=== PATIENT | female | born 1960 | race Caucasian/White ===

== ENCOUNTER → 2016-06-02 | Outpatient (CLI) | payer BC ==
--- NOTE | 2016-06-04 07:59 | MM ---
Reason for exam: screening (asymptomatic). Last mammogram was performed 5 years and 2 months ago. History: Excisional biopsy of the left breast. Took hormonal contraceptives for 7 months. Physical Findings: A clinical breast exam by your physician is recommended on an annual basis and results should be correlated with mammographic findings. MG 3D Screening Mammo W/Cad Bilateral CC and MLO view(s) were taken. Prior study comparison: April 14, 2011, bilateral digital screening mammo w/CAD. The breast tissue is heterogeneously dense. This may lower the sensitivity of mammography. No significant changes when compared with prior studies. ASSESSMENT: Negative, BI-RAD 1 RECOMMENDATION: Routine screening mammogram of both breasts in 1 year.
== END | disposition home or self-care (01) ==
LOC: RADMAMWWP 16:14
PROVIDERS: ATTEND Family Medicine
DX: Z12.31 Encounter for screening mammogram for malignant neoplasm of breast (principal)
CPT/HCPCS: 77063; G0202

== ENCOUNTER 2018-05-29 00:22 | Observation (INO) | payer BC ==
[2018-05-29] MEDS ORDERED: HYDROmorphone 1 MG/ML 1 ML SYRINGE IVP STA (01:17)
[2018-05-29] MEDS ORDERED: ONDANSETRON 4 MG/2 ML VIAL IVP STA ×2 (01:17→02:39)
--- NOTE | 2018-05-29 01:40 | XR ---
EXAMINATION TYPE: XR ankle limited LT DATE OF EXAM: 05/29/2018 COMPARISON: NONE HISTORY: Pain TECHNIQUE: 2 views FINDINGS: There is trimalleolar fracture of the left ankle. There is a posterior dislocation of the t alus. There is a large posterior malleolus chip fracture. The talus appears intact. Subtalar joint ap pears intact. IMPRESSION: Posterior fracture dislocation of the left ankle with trimalleolar fracture.
[2018-05-29] MEDS: ETOMIDATE 2 MG/ML 10 ML VIAL IV STA ×2 (02:23→02:29)
[2018-05-29 02:47] LABS: Glucose,Whole Blood 157 mg/dL (75-99)
--- NOTE | 2018-05-29 02:56 | XR ---
EXAMINATION TYPE: XR ankle complete LT DATE OF EXAM: 05/29/2018 COMPARISON: Today HISTORY: Post reduction TECHNIQUE: 3 views. FINDINGS: There is anatomic reduction of the dislocated ankle joint. Detail is limited by cast. There is trima lleolar fracture of the ankle with fragment separation up to 8 mm involving the distal fibula. There is less severe displacement of the posterior malleolus and medial malleolus fracture fragments. There is possible osteochondral defect in the medial dome of the talus. IMPRESSION: Satisfactory reduction. Possible osteochondritis dissecans in the dome of the talus.
--- NOTE | 2018-05-29 03:08 | ED ---
Lower Extremity Injury HPI - General Source: patient Mode of arrival: wheelchair Limitations: physical limitation <Maliha Bella - Last Filed: 05/29/18 05:28> <Bandar Flores - Last Filed: 05/30/18 08:19> - General Chief Complaint: Extremity Injury, Lower Stated Complaint: ankle injury Time Seen by Provider: 05/29/18 01:14 - History of Present Illness Initial Comments: 58-year-old female patient presents to the emergency department today for evaluation of left ankle injury. Patient states that just prior to arrival she was stepping over a board when she tripped and fell injuring the ankle. Patient was unable to bear weight or ambulate. Did notice obvious deformity and sudden severe pain. Patient denies any numbness or tingling to the foot. She denies hitting her head or losing consciousness during the fall. She denies any neck or back pain. Denies any other injuries. Denies history of injury to the ankle. Patient denies any headache, chest pain, shortness of breath, dizziness, weakness, abdominal pain, nausea, vomiting, or difficulties with bowel movements or urination. (Maliha Bella) - Related Data Home Medications Medication Instructions Recorded Confirmed Cholecalciferol [Vitamin D3] 1,000 mg PO DAILY 05/29/18 05/29/18 Cyanocobalamin [Vitamin B-12] 500 mcg PO DAILY 05/29/18 05/29/18 Lisinopril [Zestril] 20 mg PO DAILY 05/29/18 05/29/18 Magnesium 200 mg PO DAILY 05/29/18 05/29/18 Methimazole 10 mg PO DAILY 05/29/18 05/29/18 PARoxetine HCL [Paxil] 10 mg PO DAILY 05/29/18 05/29/18 Previous Rx's Medication Instructions Recorded HYDROcodone/APAP 5-325MG [[place] 1 - 2 tab PO Q6HR PRN #42 tab 05/29/18 5-325] Hydrocodone/Acetaminophen [[place] 1 tab PO Q4H PRN #18 tab 05/29/18 5-325] Ondansetron HCl [Zofran] 4 mg PO Q8HR #20 tablet 05/29/18 Allergies Allergy/AdvReac Type Severity Reaction Status Date / Time peanut Allergy Unknown Verified 05/29/18 08:03 soy Allergy Unknown Verified 05/29/18 08:03 Sulfa (Sulfonamide Allergy Swelling Verified 05/29/18 07:58 Antibiotics) tree nut Allergy Unknown Verified 05/29/18 08:03 Review of Systems ROS Other: All systems not noted in ROS Statement are negative. <Maliha Bella - Last Filed: 05/29/18 05:28> ROS Other: All systems not noted in ROS Statement are negative. <Bandar Flores - Last Filed: 05/30/18 08:19> ROS Statement: Those systems with pertinent positive or pertinent negative responses have been documented in the HPI. Past Medical History Past Medical History: Thyroid Disorder History of Any Multi-Drug Resistant Organisms: None Reported Past Surgical History: Bowel Resection, Cholecystectomy Additional Past Surgical History / Comment(s): cyst removed from ovary Past Psychological History: Depression Smoking Status: Never smoker Past Alcohol Use History: Occasional Past Drug Use History: None Reported <Maliha Bella - Last Filed: 05/29/18 05:28> General Exam Limitations: physical limitation General appearance: alert, in no apparent distress, other (This is a well- developed, well-nourished adult female patient in mild distress related to pain. Vital signs upon presentation are temperature 98.2F, pulse 92, respirations 23, blood pressure 166/100, pulse ox 99% on room air.) Eye exam: Present: normal appearance, PERRL, EOMI. Absent: scleral icterus, conjunctival injection, periorbital swelling Neck exam: Present: normal inspection, full ROM, other (Nontender, no step-off, no deformity to firm midline palpation of the posterior cervical spine. Full range of motion without pain or limitation.). Absent: tenderness, meningismus, lymphadenopathy Respiratory exam: Present: normal lung sounds bilaterally. Absent: respiratory distress, wheezes, rales, rhonchi, stridor Cardiovascular Exam: Present: regular rate, normal rhythm, normal heart sounds. Absent: systolic murmur, diastolic murmur, rubs, gallop, clicks GI/Abdominal exam: Present: soft, normal bowel sounds. Absent: distended, tenderness, guarding, rebound, rigid Extremities exam: Present: tenderness (Tenderness over the entirety of the left ankle), normal capillary refill, other (Deformity of the left ankle that is consistent with posterior dislocation. There is significant soft tissue swelling surrounding the left ankle. Skin is pink, warm, dry. Cap refills of some 3 seconds. Pedal pulses 2+ and equal bilaterally.). Absent: normal inspection, full ROM (No range of motion to left ankle), pedal edema, joint swelling, calf tenderness Back exam: Present: normal inspection, other (Nontender, no step-off, no deformity to firm midline palpation of the thoracic and lumbar vertebrae. Full range of motion without pain or limitation.). Absent: vertebral tenderness Neurological exam: Present: alert, oriented X3, CN II-XII intact Psychiatric exam: Present: normal affect, normal mood Skin exam: Present: warm, dry, intact, normal color. Absent: rash <Maliha Bella M - Last Filed: 05/29/18 05:28> Vital Signs 05/29/18 05/29/18 05/29/18 00:26 02:23 02:26 Temperature 98.2 F Pulse Rate 92 94 70 Respiratory 23 18 12 Rate Blood Pressure 166/100 129/73 159/103 O2 Sat by Pulse 99 100 100 Oximetry 05/29/18 05/29/18 05/29/18 02:29 03:14 03:29 Temperature Pulse Rate 84 66 Respiratory 13 21 Rate Blood Pressure 162/90 122/90 118/72 O2 Sat by Pulse 95 100 Oximetry 05/29/18 05:42 Temperature 98.3 F Pulse Rate 77 Respiratory 19 Rate Blood Pressure 116/75 O2 Sat by Pulse 96 Oximetry Procedures - Orthopedic Joint Reduction Joint #1 Consent Obtained: written consent Time Out Performed: Yes Side: left Joint Reduction Location: ankle Analgesia: procedural sedation Technique Used: traction/counter-traction, direct manipulation Post-Reduction Neuro Exam: intact, no change Post-Reduction Vascular Exam: intact, no change Post Reduction X-Ray Obtained: Yes Post Reduction X-Ray Results: reduced Splint Applied: Yes Patient Tolerated Procedure: well - Orthopedic Splinting/Casting Injury #1 Side: left Lower Extremity Injury Location: short leg, ankle Lower Extremity Immobilizer: posterior splint, stirrup splint, Rahul wrap - Procedural Sedation Procedural Sedation Start Time: 02:23 Procedural Sedation Stop Time: 02:30 Indications: fracture/dislocation reduction Preparation: electrical plumbing supervisor applied, pulse oximeter, capnometry used, supplemental O2 applied, reversal agents at bedside, suction/airway equipment at bedside, IV secured IV Etomidate Dose (mgs): 5.6 Complications: none Patient Tolerated Procedure: well, no complications <Maliha Bella - Last Filed: 05/29/18 05:28> <Bandar Flores - Last Filed: 05/30/18 08:19> - Orthopedic Joint Reduction Joint #1 Additional Comments: Dr. Flores in and managed reduction. Maliha Medina, AVIONICS SAFETY INSPECTOR-c acted as scribe for this procedure. (Maliha Bella) - Orthopedic Splinting/Casting Injury #1 Additional Comments: Neurovascular status intact after splint application. Skin is pink, warm, dry. Cap refills less than 3 seconds. Patient denies numbness or tingling. (Maliha Bella) - Procedural Sedation Other Medications Used: Zofran (Maliha Bella) Additional Comments: Dr. Flores at bedside, managed sedation. Maliha Medina NP-c acted as scribe for this procedure. (Maliha Bella) Medical Decision Making - Radiology Data Radiology results: report reviewed, image reviewed <Maliha Bella - Last Filed: 05/29/18 05:28> - Lab Data Result diagrams: 05/29/18 05:10 05/29/18 05:10 <Bandar Flores - Last Filed: 05/30/18 08:19> - Medical Decision Making 58-year-old female patient presents to the emergency department today for evaluation of left ankle pain and deformity after an injury. Physical examination did reveal obvious deformity. Neurovascular status is intact. X- ray did reveal a posterior dislocation and trimalleolar fracture. We did perform conscious sedation with closed reduction of the left ankle. Did have satisfactory reduction on postreduction x-ray. Plan was to discharge patient home however she had increased pain and significant nausea after conscious sedation. Did discuss the case with Dr. Medina who recommended CT of the left ankle. We will admit to observation for treatment of nausea and pain. (Maliha Bella) I saw this patient in conjunction with the physician refinery operator assistant. I performed independent history and physical exam. Agree with case management. (Bandar Flores) - Lab Data Lab Results 05/29/18 05/29/18 05/29/18 Range/Units 02:45 05:10 05:10 WBC 12.7 H (3.8-10.6) k/uL RBC 4.05 (3.80-5.40) m/uL Hgb 12.8 (11.4-16.0) gm/dL Hct 37.9 (34.0-46.0) % MCV 93.7 (80.0-100.0) fL MCH 31.6 (25.0-35.0) pg MCHC 33.7 (31.0-37.0) g/dL RDW 12.3 (11.5-15.5) % Plt Count 261 (150-450) k/uL Neutrophils % 77 % Lymphocytes % 13 % Monocytes % 8 % Eosinophils % 1 % Basophils % 0 % Neutrophils # 9.8 H (1.3-7.7) k/uL Lymphocytes # 1.6 (1.0-4.8) k/uL Monocytes # 1.0 (0-1.0) k/uL Eosinophils # 0.1 (0-0.7) k/uL Basophils # 0.0 (0-0.2) k/uL PT (9.0-12.0) sec INR (<1.2) APTT (22.0-30.0) sec Sodium 137 (137-145) mmol/L Potassium 4.1 (3.5-5.1) mmol/L Chloride 110 H (98-107) mmol/L Carbon Dioxide 21 L (22-30) mmol/L Anion Gap 6 mmol/L BUN 10 (7-17) mg/dL Creatinine 0.77 (0.52-1.04) mg/dL Est GFR (CKD-EPI)AfAm >90 (>60 ml/min/1.73 sqM) Est GFR (CKD-EPI)NonAf 84 (>60 ml/min/1.73 sqM) Glucose 112 H (74-99) mg/dL POC Glucose (mg/dL) 157 H (75-99) mg/dL POC Glu Insulation Board Coater Operator ID Dianne Monreal Calcium 8.5 (8.4-10.2) mg/dL Total Bilirubin 0.7 (0.2-1.3) mg/dL AST 23 (14-36) U/L ALT 24 (9-52) U/L Alkaline Phosphatase 57 (38-126) U/L Total Protein 5.8 L (6.3-8.2) g/dL Albumin 3.4 L (3.5-5.0) g/dL Blood Type Blood Type Confirm Blood Type Recheck Antibody Screen Spec Expiration Date 05/29/18 05/29/18 05/29/18 Range/Units 05:10 05:10 05:12 WBC (3.8-10.6) k/uL RBC (3.80-5.40) m/uL Hgb (11.4-16.0) gm/dL Hct (34.0-46.0) % MCV (80.0-100.0) fL MCH (25.0-35.0) pg MCHC (31.0-37.0) g/dL RDW (11.5-15.5) % Plt Count (150-450) k/uL Neutrophils % % Lymphocytes % % Monocytes % % Eosinophils % % Basophils % % Neutrophils # (1.3-7.7) k/uL Lymphocytes # (1.0-4.8) k/uL Monocytes # (0-1.0) k/uL Eosinophils # (0-0.7) k/uL Basophils # (0-0.2) k/uL PT 10.1 (9.0-12.0) sec INR 0.9 (<1.2) APTT 22.2 (22.0-30.0) sec Sodium (137-145) mmol/L Potassium (3.5-5.1) mmol/L Chloride (98-107) mmol/L Carbon Dioxide (22-30) mmol/L Anion Gap mmol/L BUN (7-17) mg/dL Creatinine (0.52-1.04) mg/dL Est GFR (CKD-EPI)AfAm (>60 ml/min/1.73 sqM) Est GFR (CKD-EPI)NonAf (>60 ml/min/1.73 sqM) Glucose (74-99) mg/dL POC Glucose (mg/dL) (75-99) mg/dL POC Glu Insulation Board Coater Operator ID Calcium (8.4-10.2) mg/dL Total Bilirubin (0.2-1.3) mg/dL AST (14-36) U/L ALT (9-52) U/L Alkaline Phosphatase (38-126) U/L Total Protein (6.3-8.2) g/dL Albumin (3.5-5.0) g/dL Blood Type O Positive Blood Type Confirm O Positive Blood Type Recheck CABO Indicated Antibody Screen NEGATIVE Spec Expiration Date 06/01/2018 - 0 - Radiology Data 2 views of the left ankle were obtained. Report was reviewed in its entirety. Impression by Dr. Jones shows posterior fracture dislocation of the left ankle with trimalleolar fracture. 3 views of the left ankle were obtained. Report is reviewed in its entirety. Impression by Dr. Jones shows satisfactory reduction. Possible osteochondritis dissecans of the dome of the talus. (Maliha Bella) Disposition Decision to Admit Reason: Admit from EC Decision Date: 05/29/18 Decision Time: 05:30 <Maliha Bella - Last Filed: 05/29/18 05:28> <Bandar Flores - Last Filed: 05/30/18 08:19> Clinical Impression: Trimalleolar fracture of left ankle Disposition: ADMITTED IP TO THIS [facility] Condition: Serious
[2018-05-29] MEDS ORDERED: SCOPOLAMINE 1.5MG/72HR PATCH TRANSDERM STA (03:15)
[2018-05-29] MEDS ORDERED: NALOXONE 0.4 MG/ML 1 ML VIAL IV PRN (05:16)
[2018-05-29] MEDS ORDERED: ONDANSETRON 4 MG/2 ML VIAL IVP PRN (05:16)
[2018-05-29] MEDS ORDERED: MORPHINE SULFATE 4 MG/ML SYRINGE IV PRN (05:16)
[2018-05-29] MEDS ORDERED: ORPHENADRINE 30 MG/ML 2 ML VIAL IVP STA (05:17)
[2018-05-29 05:23] LABS: Basophils % (A) 0 %; Eosinophils # (A) 0.1 k/uL (0-0.7); Eosinophils % (A) 1 %; HCT 37.9 % (34.0-46.0); HGB 12.8 gm/dL (11.4-16.0); Lymphocytes # (A) 1.6 k/uL (1.0-4.8); Lymphocytes % (A) 13 %; MCH 31.6 pg (25.0-35.0); MCHC 33.7 g/dL (31.0-37.0); MCV 93.7 fL (80.0-100.0); Mean Platelet Volume 7.5; Monocytes % (A) 8 %; Neutrophils # (A) 9.8 k/uL (1.3-7.7); Neutrophils % (A) 77 %; Platelet Count 261 k/uL (150-450); RBC 4.05 m/uL (3.80-5.40); RDW 12.3 % (11.5-15.5); WBC 12.7 k/uL (3.8-10.6)
[2018-05-29 05:34] LABS: ALT 24 U/L (9-52); AST 23 U/L (14-36); Albumin 3.4 g/dL (3.5-5.0); Alkaline Phosphatase 57 U/L (38-126); Anion Gap 6 mmol/L; Blood Urea Nitrogen 10 mg/dL (7-17); Calcium 8.5 mg/dL (8.4-10.2); Carbon Dioxide 21 mmol/L (22-30); Chloride 110 mmol/L (98-107); Glucose 112 mg/dL (74-99); Potassium 4.1 mmol/L (3.5-5.1); Sodium 137 mmol/L (137-145); Total Bilirubin 0.7 mg/dL (0.2-1.3); Total Protein 5.8 g/dL (6.3-8.2)
[2018-05-29 05:59] LABS: INR 0.9 (<1.2); Partial Thromboplastin Time 22.2 sec (22.0-30.0); Prothrombin Time 10.1 sec (9.0-12.0)
--- NOTE | 2018-05-29 06:09 | CT ---
CT scan left ankle. History post reduction. Comparison none. TECHNIQUE: Multiple axial sections were obtained from the mid shaft of the tibia to the proximal metatarsals wit h no contrast. FINDINGS: There is nondisplaced comminuted 3.5 x 1.5 cm chip fracture of the posterior malleolus. There is gonzalez sverse fracture of the medial malleolus with comminution. Fragments are 5 mm. There is a ob lique fracture of the distal shaft of the fibula with separation of the fragments 7 mm on the sagitta l images. There is a 10 x 5 mm osteochondral defect involving the medial dome of the talus related to old osteochondritis dissecans. The talus is otherwise intact. Calcaneus is intact. IMPRESSION: Comminuted trimalleolar fracture of the ankle. No significant displacement of the fragments. 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
[2018-05-29 07:24] VITALS: BMI 20.7
[2018-05-29] MEDS ORDERED: HYDROcodone/APAP 5-325MG 1 EACH TAB PO PRN ×2 (10:17)
--- NOTE | 2018-05-29 11:15 | P.HPOR ---
History of Present Illness H&P Date: 05/29/18 Chief Complaint: Left ankle pain This is a 58 year old female that presented to [facility] ED yesterday for evaluation of left ankle pain following a fall. Patient states she was walking in the dark when she tripped over her dog's gate and landed on her ankle. Patient states she experienced immediate, intense pain and was unable to walk. She also notes there was obvious deformity of the left ankle. She denies pain or injury to other parts of the body. She states she called her daughter immediately who helped her into the car and brought her to the ED for further evaluation. Patient was found to have a trimalleolar fracture of the left ankle with posterior dislocation in the ED. The ankle was successfully reduced in the ED, the patient experienced nausea and pain was uncontrolled she was admitted for further evaluation and treatment. Currently, patient states that her pain is uncontrolled. She has been elevating and icing the left ankle with no pain relief. She states Morphine has "not touched" her pain. She denies chest pain, shortness of breath, nausea, vomiting. Past Medical History Past Medical History: Thyroid Disorder Additional Past Medical History / Comment(s): graves disease, mono, kandy foster History of Any Multi-Drug Resistant Organisms: None Reported Past Surgical History: Bowel Resection, Cholecystectomy Additional Past Surgical History / Comment(s): cyst removed from ovary Past Psychological History: Depression Smoking Status: Never smoker Past Alcohol Use History: Occasional Past Drug Use History: None Reported Medications and Allergies Home Medications Medication Instructions Recorded Confirmed Type Cholecalciferol [Vitamin D3] 1,000 mg PO DAILY 05/29/18 05/29/18 History Cyanocobalamin [Vitamin B-12] 500 mcg PO DAILY 05/29/18 05/29/18 History Hydrocodone/Acetaminophen [[place] 1 tab PO Q4H PRN #18 tab 05/29/18 Rx 5-325] Lisinopril [Zestril] 20 mg PO DAILY 05/29/18 05/29/18 History Magnesium 200 mg PO DAILY 05/29/18 05/29/18 History Methimazole 10 mg PO DAILY 05/29/18 05/29/18 History PARoxetine HCL [Paxil] 10 mg PO DAILY 05/29/18 05/29/18 History Allergies Allergy/AdvReac Type Severity Reaction Status Date / Time peanut Allergy Unknown Verified 05/29/18 08:03 soy Allergy Unknown Verified 05/29/18 08:03 Sulfa (Sulfonamide Allergy Swelling Verified 05/29/18 07:58 Antibiotics) tree nut Allergy Unknown Verified 05/29/18 08:03 Physical Examination On examination, the patient is sitting up in bed in mild distress. Patient is alert and oriented 3. The left lower extremity is wrapped in a Rahul wrap and posterior splint. She is able to wiggle toes without difficulty. There is brisk capillary refill of the left great toe. Splint was not taken down during examination due to patient's pain. Results Left ankle xray 05/28/18 - Trimalleolar fracture with posterior dislocation of ankle Left ankle xray 05/28/18- Post-reduction films show a satisfactory reduction of ankle - Labs Labs: Abnormal Lab Results - Last 24 Hours (Table) 05/29/18 05/29/18 05/29/18 Range/Units 02:45 05:10 05:10 WBC 12.7 H (3.8-10.6) k/uL Neutrophils # 9.8 H (1.3-7.7) k/uL Chloride 110 H (98-107) mmol/L Carbon Dioxide 21 L (22-30) mmol/L Glucose 112 H (74-99) mg/dL POC Glucose (mg/dL) 157 H (75-99) mg/dL Total Protein 5.8 L (6.3-8.2) g/dL Albumin 3.4 L (3.5-5.0) g/dL H & H 05/29/18 Range/Units 05:10 Hgb 12.8 (11.4-16.0) gm/dL Hct 37.9 (34.0-46.0) % Coagulation 05/29/18 Range/Units 05:10 INR 0.9 (<1.2) Result Diagrams: 05/29/18 05:10 05/29/18 05:10 Assessment and Plan Assessment: Left trimalleolar ankle fracture Plan: - Clinical and xray findings discussed with patient. Explained to patient that her ankle will most likely need surgery, although due to swelling the surgery would not be performed for at least 10-14 days. Therefore she may be discharged and follow-up with Dr. Medina as an outpatient for continued evaluation and treatment. Patient verbalized understanding and agreement. - [place] 5 ordered for pain management. We will keep the patient in the hospital until her pain is controlled. We'll continue to monitor her response. - Patient to remain nonweightbearing of the left lower extremity. She is to remain in splint until she follows up with Dr. Medina in the office. She is to keep splint clean, dry, and intact. - Recommended that she continue to elevate and ice the left lower extremity to decrease pain and swelling. - Patient discussed with Dr. Medina.
[2018-05-29] MEDS ORDERED: HYDROmorphone 0.5 MG/0.5 ML SYRINGE IVP STA (14:03)
[2018-05-29] MEDS ORDERED: LIDOCAINE 2% INJ 20 MG/ML (20 ML MDV) SQ ONE (14:10)
--- NOTE | 2018-05-29 14:55 | P.PN ---
Progress Note - Text Progress Note Date: 05/29/18 I met with the patient and her daughter. She had a very uncomfortable splint in place which was very painful so I decided to place a splint with more padding and a better mold. Verbal consent was obtained. An intra-articular ankle block was performed with 10mL of 2% lidocaine using the anteromedial portal. A reduction was performed using the Rafi maneuver. A well-padded bulky Mendez splint with varus mold was placed. The patient tolerated this well. She will follow-up in 1-week to assess the soft tissue envelope and plan surgery.
[2018-05-29 16:20] VITALS: BP 115/74; PULSE 83; RESP 16; TEMP 98.3
--- NOTE | 2018-06-06 13:16 | P.DS ---
Providers Date of admission: 05/29/18 05:29 Attending physician: Franc Medina Primary care physician: Vera Miller [facility] Course: Patient was admitted for pain control and therapy after being seen in the ER. She had a new splint applied while in house. Patient Condition at Discharge: Serious Plan - Discharge Summary Discharge Rx Participant: No New Discharge Prescriptions: New Hydrocodone/Acetaminophen [[place] 5-325] 1 tab PO Q4H PRN #18 tab PRN Reason: Pain HYDROcodone/APAP 5-325MG [[place] 5-325] 1 - 2 tab PO Q6HR PRN #42 tab PRN Reason: Pain Ondansetron HCl [Zofran] 4 mg PO Q8HR #20 tablet No Action PARoxetine HCL [Paxil] 10 mg PO DAILY Methimazole 10 mg PO DAILY Magnesium 200 mg PO DAILY Lisinopril [Zestril] 20 mg PO DAILY Cyanocobalamin [Vitamin B-12] 500 mcg PO DAILY Cholecalciferol [Vitamin D3] 1,000 mg PO DAILY Discharge Medication List Cholecalciferol [Vitamin D3] 1,000 mg PO DAILY 05/29/18 [History] Cyanocobalamin [Vitamin B-12] 500 mcg PO DAILY 05/29/18 [History] HYDROcodone/APAP 5-325MG [[place] 5-325] 1 - 2 tab PO Q6HR PRN #42 tab 05/29/18 [ Rx] Hydrocodone/Acetaminophen [[place] 5-325] 1 tab PO Q4H PRN #18 tab 05/29/18 [Rx] Lisinopril [Zestril] 20 mg PO DAILY 05/29/18 [History] Magnesium 200 mg PO DAILY 05/29/18 [History] Methimazole 10 mg PO DAILY 05/29/18 [History] Ondansetron HCl [Zofran] 4 mg PO Q8HR #20 tablet 05/29/18 [Rx] PARoxetine HCL [Paxil] 10 mg PO DAILY 05/29/18 [History] Follow up Appointment(s)/Referral(s): Vera Miller DO [Primary Care Provider] - 1-2 days Franc Medina MD [Medical Doctor] - 2 Weeks Activity/Diet/Wound Care/Special Instructions: Rest, Ice, and Elevate the left ankle. Leave splint in place until follow up with the senior accounting specialist. Remain non-weightbearing to the left leg. Take pain medication as directed. Return to the emergency department for any new, worsening, or concerning symptoms. Discharge Disposition: HOME SELF-CARE
== END 2018-05-29 16:30 | disposition home or self-care (01) ==
LOC: EC 00:22 → 4SSUR 05:29
PROVIDERS: ADMIT Orthopaedic Surgery; ATTEND Orthopaedic Surgery
DX: S82.852A Displaced trimalleolar fracture of left lower leg, initial encounter for closed fracture (principal); R11.0 Nausea; E05.00 Thyrotoxicosis with diffuse goiter without thyrotoxic crisis or storm; F32.9 Major depressive disorder, single episode, unspecified; Z90.49 Acquired absence of other specified parts of digestive tract; Z79.899 Other long term (current) drug therapy; Z91.018 Allergy to other foods; Z91.010 Allergy to peanuts; Z88.2 Allergy status to sulfonamides; W01.0XXA Fall on same level from slipping, tripping and stumbling without subsequent striking against object, initial encounter
CPT/HCPCS: 27818 ×2; 96376 ×2; 96375 ×2; 96374; 99285; 36415; 86900; 86901; 80053; 85025; 85610; 85730; 86850; 73600; 73610; 73700; G0378; J2001; J2270; J2405; J1170 ×2

== ENCOUNTER 2018-06-15 09:47 | Inpatient (IN) | payer BC ==
[2018-06-13 11:43] VITALS: BMI 21.1
[~2018-06-15 09:47] MED LIST: DEXAMETHASONE SOD PHOSPHATE 10 MG/ML 1 ML VIAL IV ONE; HYDROmorphone 0.5 MG/0.5 ML SYRINGE IVP PRN; MIDAZOLAM (PF) 2 MG/2 ML VIAL IV PRN; ONDANSETRON 4 MG/2 ML VIAL IVP ONE; SCOPOLAMINE 1.5MG/72HR PATCH TRANSDERM ONE; ceFAZolin IN SWFI 2 GM/20 ML SYRINGE IVP ONE
[2018-06-15] MEDS: LACTATED RINGERS 1,000 ML IV SCH ×2 (11:15→19:01)
[2018-06-15] MEDS ORDERED: LIDOCAINE 1% 20 ML VIAL (10MG/ML) FOR IV START INTRADERMA ONE (11:15)
[2018-06-15] MEDS ORDERED: fentaNYL (PF) 50 MCG/ML 2 ML AMP IV ONE (12:20)
[2018-06-15] MEDS ORDERED: LIDOCAINE 1% INJ 10MG/ML (20 ML MDV) ONE (12:59)
[2018-06-15] MEDS ORDERED: ROPIVACAINE 5 MG/ML 30 ML VIAL ONE (12:59)
[2018-06-15] MEDS ORDERED: PHENYLEPHRINE-0.9% NACL SYG 1 MG/10 ML SYRINGE ONE (12:59)
[2018-06-15] MEDS ORDERED: ePHEDrine SULFATE/0.9% NACL/PF 50 MG/5 ML SYRINGE IV ONE (12:59)
[2018-06-15] MEDS ORDERED: PROPOFOL 10 MG/ML 20 ML VIAL IV ONE (12:59)
[2018-06-15] MEDS ORDERED: MIDAZOLAM 2 MG/2 ML VIAL ONE (12:59)
--- NOTE | 2018-06-15 13:19 | P.ONQ ---
Anesthesiology Proc Note - PNB - Peripheral Nerve Block Performed Left Popliteal Single Time Out Performed: Yes (5725) Procedure Start Time: 12:15 Procedure Stop Time: 12:25 Indication: Acute Post-Operative Pain, Dx/Pain Location (Left ankle pain), Requested by physician Sedation Type: Sedate with meaningful contact maintained Preparation: Sterile Prep Position: Supine Catheter: None Needle Types: On-Q Needle Size: 100mm (4") Needle Gauge: 21 Technique: Ultrasound Injectate: Other (see comment) (0.375% Ropivacaine 20ml) Blood Aspirated: No Pain Paresthesia on Injection Noted: No Resistance on Injection: Normal Events: Uneventful and Well Tolerated
--- NOTE | 2018-06-15 13:20 | P.ONQ ---
Anesthesiology Proc Note - PNB - Peripheral Nerve Block Performed Left Adductor Canal Single Time Out Performed: Yes ([id number]) Procedure Start Time: 12:15 Procedure Stop Time: 12:25 Indication: Acute Post-Operative Pain, Dx/Pain Location (Left ankle pain), Requested by physician Sedation Type: Sedate with meaningful contact maintained Preparation: Sterile Prep Position: Supine Catheter: None Needle Types: On-Q Needle Size: 100mm (4") Needle Gauge: 21 Technique: Ultrasound Injectate: Other (see comment) (20ml 0.375% Ropivacaine) Blood Aspirated: No Pain Paresthesia on Injection Noted: No Resistance on Injection: Normal Events: Uneventful and Well Tolerated
[2018-06-15] MEDS ORDERED: LACTATED RINGERS 1,000 ML IV ONE (13:51)
[2018-06-15] MEDS ORDERED: ONDANSETRON 4 MG/2 ML VIAL IVP PRN (15:04)
[2018-06-15] MEDS ORDERED: HYDROmorphone 0.5 MG/0.5 ML SYRINGE IVP PRN ×2 (15:04)
[2018-06-15] MEDS ORDERED: HYDROcodone/APAP 5-325MG 1 EACH TAB PO PRN (15:04)
[2018-06-15] MEDS ORDERED: SENNOSIDES-DOCUSATE SODIUM 1 EACH TAB PO PRN (15:04)
--- NOTE | 2018-06-15 15:08 | P.OP ---
Date of Procedure: 06/15/18 Preoperative Diagnosis: 1. Closed left trimalleolar ankle fracture 2. Osteoporosis Postoperative Diagnosis: Same Procedure(s) Performed: 1. Open reduction and internal fixation of left medial and lateral malleolus, nonoperative management posterior malleolus 2. Manual application of joint stress by physician for radiography, left ankle 3. Application of short leg splint by physician, left ankle Anesthesia: HENRRY Surgeon: Franc Medina Career Services Director #1: Deep Castellon Estimated Blood Loss (ml): 10 IV fluids (ml): 1,200 Pathology: none sent Condition: stable Disposition: PACU Indications for Procedure: The patient is a very pleasant 58-year-old female who sustained a low-energy fall at home resulting in a left ankle fracture dislocation. She was seen in the emergency department where closed reduction was performed. Due to nausea and pain she was admitted. She was seen by orthopedics and her splint was changed. A computed tomography scan was obtained. The patient was seen in the office and we discussed surgical options. She agreed to go forward with surgery. We discussed potential risks and complications of surgery including but not limited to risk of anesthesia, superficial infection, deep infection, delayed wound healing, superficial wound necrosis, damage to local blood vessels or nerves, nonunion the fracture site, malunion of the fracture site, fracture malreduction, post radical arthritis, hardware failure, symptomatically hardware, chronic pain, chronic swelling, DVT, PE, other medical complications, posttraumatic arthritis, and inability to regain preinjury level of function, and possibly loss of life or limb. The patient provided her verbal and written consent to go forward with surgery. Description of Procedure: The patient is identified in preoperative holding and the correct left leg was marked my initials. I reviewed the consent form with the patient and all of her questions were answered. She received a popliteal and saphenous nerve block by anesthesia. She was brought to the operating room. She was positioned on the OR table and a general anesthetic and preoperative antibiotics administered. The right leg was secured to the table with foam and tape. A tourniquet was applied the proximal aspect of the left leg. A timeout was performed identifying the correct patient, operative extremity, and procedure. The left leg was prepped and draped in the standard sterile fashion. The leg was elevated, exsanguinated with an Esmarch bandage, and the tourniquet was inflated to 250 mmHg. An incision was marked out over the lateral aspect of the ankle. Skin incision was made with a scalpel. Dissection was carried down carefully to the subcu tissues tissue tenotomy scissors. The periosteum over the distal fibula and fascia over the peroneal muscles was sharply incised. The fracture site was immediately visible. Sharply debrided, removing early consolidating hematoma and callus. The fibula was pulled out to length and the fracture was clamped with a [id number]-av-rjcok reduction clamp. The reduction was verified with fluoroscopy. A nonlocking 2.7 mm lag screw was placed from anterior to posterior across the fracture generating excellent compression. A precontoured locking plate was placed over the lateral aspect of the fibula. The plate fit best slightly posteriorly on the fibula. It was held down to the bone proximal to the fracture with 3 nonlocking 3.5 mm screws. Distally locking 2.7 mm screws were placed into the distal fragment. Attention was then turned medially. An incision was made over the anterior colliculus of the medial malleolus. Dissection was carried down carefully through subcutaneous tissue with tenotomy scissors. The fracture was sharply identified and debrided. There was a very small anterior colliculus fragment. A 2.0 mm drill bit was used to create a unicortical perforation just proximal to the fracture. A small efpbr-dx-uhexr reduction clamp was used with 1 markel in this drill hole and the second markel at the tip of the medial malleolus fragment. The fracture was carefully teased into place and the reduction clamp tightened. Clinically the fracture appeared to be anatomically reduced. Fluoroscopy was brought in to verify reduction. A 2.0 mm drill bit was used to create a path through the medial malleolus fracture fragment for a solid 2.7 mm screw. Due to the size of the fragment I elected not to place a second screw for fear of fracturing the fragment. A manual external rotation stress x-ray was performed which showed persistent widening of the medial clear space There was still slight widening of the medial clear space so a large Franks reduction clamp was used with 1 markel over the lateral plate and 1 markel over the anterior third of the medial tibia. The clamp was gently tightened. A 3.5 mm syndesmotic screw was placed. The clamp was removed and the talus remained anatomically reduced within the ankle mortise. An external rotation stress x-ray showed no widening of the medial clear space or incisura. A true talar dome overlap lateral was taken and showed minimal displacement of the posterior malleolus and no posterior subluxation of the talus. I elected not to provide fixation across the posterior malleolus due to the size and minimal displacement. The wound was copiously irrigated and closed in layers. A sterile dressing was applied. The tourniquet was let down. The drapes were removed and a well-padded bulky Mendez splint was placed with the ankle in neutral. The patient was awoken from her anesthetic, transferred to a gurney, and brought to recovery having tolerated the procedure well. Deep Castellon PA-C was required as a skilled legal assistant for patient positioning, surgical exposure, retraction, reduction of fracture, placement of hardware, closure of wound, and application of splint. Plan: The patient is going to be admitted overnight for pain control and antibiotics. She will need physical therapy for gait training.
[2018-06-15 15:34] VITALS: RESP 16
[2018-06-15 17:03] LABS: Basophils % (A) 0 %; Eosinophils % (A) 1 %; HCT 40.1 % (34.0-46.0); HGB 12.8 gm/dL (11.4-16.0); Lymphocytes # (A) 0.4 k/uL (1.0-4.8); Lymphocytes % (A) 5 %; MCH 31.1 pg (25.0-35.0); Mean Platelet Volume 7.3; Monocytes # (A) 0.1 k/uL (0-1.0); Monocytes % (A) 1 %; Neutrophils % (A) 93 %; Platelet Count 388 k/uL (150-450); RBC 4.13 m/uL (3.80-5.40); RDW 12.3 % (11.5-15.5); WBC 8.6 k/uL (3.8-10.6)
--- NOTE | 2018-06-15 17:27 | FL ---
Fluoroscopy HISTORY: Open reduction internal fixation, fracture 51 seconds fluoroscopy time supplied to the referring clinician. 4 intraoperative C-arm images docum ent the procedure. See dictated report from orthopedic surgery.
--- NOTE | 2018-06-15 17:28 | XR ---
Limited left ankle HISTORY: Fracture 4 intraoperative C-arm images document the procedure
[2018-06-15] MEDS: ceFAZolin IN SWFI 2 GM/20 ML SYRINGE IVP SCH (21:49)
[2018-06-16] MEDS: ceFAZolin IN SWFI 2 GM/20 ML SYRINGE IVP SCH (05:38)
[2018-06-16] MEDS: LACTATED RINGERS 1,000 ML IV SCH ×3 (05:42→12:44)
[2018-06-16] MEDS: HYDROcodone/APAP 5-325MG 1 EACH TAB PO PRN ×3 (06:16→22:32)
[2018-06-16] MEDS: ENOXAPARIN 40 MG/0.4 ML SYRINGE SQ SCH (07:32)
[2018-06-16] MEDS: HYDROmorphone 1 MG/ML 1 ML SYRINGE IVP PRN ×3 (10:56→19:36)
--- NOTE | 2018-06-16 12:28 | P.PN ---
Subjective Progress Note Date: 06/16/18 Principal diagnosis: Closed left trimalleolar ankle fracture status-post open reduction and internal fixation of the left medial and lateral malleolus, with nonoperative management of posterior malleolus This patient is a 58-year-old female who sustained a left ankle fracture dislocation. She was seen in the emergency department where a closed reduction was performed, she was subsequently admitted due to nausea and pain and was seen by orthopedics and a bulky Mendez splint was placed, and a CT scan was obtained. Patient was followed by Dr. Medina in the office and surgical treatment was recommended. Patient underwent an open reduction and internal fixation of her left ankle fracture on 06/15/[address] Medina. Today's postoperative day #1. The patient states her pain is currently well- controlled, she believes her nerve block has not worn off yet. She has been up with therapy this morning, she is currently sitting in a chair. She denies numbness or tingling of the left lower extremity. She denies any new complaints today. Vital signs stable. Objective - Vital Signs Vital signs: Vital Signs Temp 99.4 F 06/16/18 07:35 Pulse 77 06/16/18 07:35 Resp 16 06/16/18 07:35 BP 111/62 06/16/18 07:35 Pulse Ox 97 06/16/18 07:35 Intake & Output 06/15/18 06/16/18 06/16/18 18:59 06:59 18:59 Intake Total 1800 40 240 Output Total 603 Balance 1197 40 240 Intake: IV 1800 Intake, IV Titration 40 Amount Lactated Ringers 1,000 ml 40 @ 20 mls/hr IV .Q24H LAMINE Rx#:[id number] Oral 240 Output: Urine 600 Estimated Blood Loss 3 Other: # Voids 2 - Exam On examination, the patient is sitting up in bed in no acute distress. The patient is alert and oriented 3. On inspection of the left lower extremity, there is a bulky Mendez splint in place. The splint is clean, dry, and intact. The left toes are warm and well perfused, with capillary refill less than 2 seconds. The patient is able to wiggle her left toes without difficulty. Sensation is intact to light touch of the left lower extremity. Neurovascular is intact of the left lower extremity. - Labs CBC & Chem 7: 06/15/18 16:23 Labs: Abnormal Lab Results - Last 24 Hours (Table) 06/15/18 Range/Units 16:23 Neutrophils # 8.0 H (1.3-7.7) k/uL Lymphocytes # 0.4 L (1.0-4.8) k/uL Assessment and Plan Assessment: Closed left trimalleolar ankle fracture status post open reduction and internal fixation of the left medial and lateral, with nonoperative management posterior malleolus Plan: - Strict nonweightbearing of the left lower extremity. Ice and elevate the left lower extremity to decrease pain and swelling. - Physical therapy for gait and balance training. - Continue pain management. - Lovenox while inpatient for anticoagulation. - 2 doses of postoperative antibiotics complete. - Case management consult for discharge planning. Anticipate discharge home in the next 24 hours. - Patient seen with Dr. Medina.
[2018-06-17] MEDS: LACTATED RINGERS 1,000 ML IV SCH ×4 (01:00→17:15)
[2018-06-17] MEDS: HYDROmorphone 1 MG/ML 1 ML SYRINGE IVP PRN (03:22)
[2018-06-17] MEDS: hydrOXYzine PAMOATE 25 MG CAP PO PRN ×3 (06:02→20:53)
[2018-06-17] MEDS: HYDROcodone/APAP 5-325MG 1 EACH TAB PO PRN (06:02)
[2018-06-17] MEDS: ENOXAPARIN 40 MG/0.4 ML SYRINGE SQ SCH (07:36)
--- NOTE | 2018-06-17 09:05 | P.PN ---
Subjective Progress Note Date: 06/17/18 Principal diagnosis: Closed left trimalleolar ankle fracture status-post open reduction and internal fixation of the left medial and lateral malleolus, with nonoperative management of posterior malleolus This patient is a 58-year-old female who sustained a left ankle fracture dislocation. She was seen in the emergency department where a closed reduction was performed, she was subsequently admitted due to nausea and pain and was seen by orthopedics and a bulky Mendez splint was placed, and a CT scan was obtained. Patient was followed by Dr. Medina in the office and surgical treatment was recommended. Patient underwent an open reduction and internal fixation of her left ankle fracture on 06/15/[address] Medina. Today's postoperative day #2. The patient states her pain is currently well- controlled. She has been transferring and ambulating with the walker without issue, she is currently sitting in a chair. She denies numbness or tingling of the left lower extremity. She denies chest pain, shortness of breath, nausea, vomiting. Vital signs stable. Objective - Vital Signs Vital signs: Vital Signs Temp 98.0 F 06/17/18 07:39 Pulse 75 06/17/18 07:39 Resp 16 06/17/18 07:39 BP 99/58 06/17/18 07:39 Pulse Ox 96 06/17/18 07:39 Intake & Output 06/16/18 06/17/18 06/17/18 18:59 06:59 18:59 Intake Total 595 Balance 595 Intake: Oral 595 Other: Voiding Method Toilet # Voids 2 2 - Exam On examination, the patient is sitting up in bed in no acute distress. The patient is alert and oriented 3. On inspection of the left lower extremity, there is a bulky Mendez splint in place. The splint is clean, dry, and intact. The left toes are warm and well perfused, with capillary refill less than 2 seconds. The patient is able to wiggle her left toes without difficulty. Sensation is intact to light touch of the left lower extremity. Neurovascular is intact of the left lower extremity. - Labs CBC & Chem 7: 06/15/18 16:23 Assessment and Plan Assessment: Closed left trimalleolar ankle fracture status post open reduction and internal fixation of the left medial and lateral, with nonoperative management posterior malleolus Plan: - Strict nonweightbearing of the left lower extremity. Ice and elevate the left lower extremity to decrease pain and swelling. - Physical therapy for gait and balance training. - Continue pain management. - Lovenox while inpatient for anticoagulation. - 2 doses of postoperative antibiotics complete. - Case management consult for discharge planning. Anticipate discharge home in the next 24 hours. - Patient discussed with Dr. Medina.
[2018-06-17] MEDS ORDERED: HYDROcodone/APAP 7.5-325MG 1 EACH TAB PO PRN ×2 (10:01)
[2018-06-17] MEDS: HYDROcodone/APAP 10-325MG 1 EACH TAB PO PRN ×2 (15:04→19:35)
[2018-06-17] MEDS ORDERED: NALOXONE 0.4 MG/ML 1 ML VIAL IV PRN (19:06)
[2018-06-18] MEDS: HYDROcodone/APAP 10-325MG 1 EACH TAB PO PRN ×4 (00:02→13:38)
[2018-06-18] MEDS: hydrOXYzine PAMOATE 25 MG CAP PO PRN ×3 (03:18→15:57)
[2018-06-18] MEDS: LACTATED RINGERS 1,000 ML IV SCH ×3 (04:53→10:31)
[2018-06-18] MEDS: ENOXAPARIN 40 MG/0.4 ML SYRINGE SQ SCH (09:29)
--- NOTE | 2018-06-18 09:37 | P.DS ---
Providers Date of admission: 06/17/18 15:36 Expected date of discharge: 06/18/18 Attending physician: Franc Medina Primary care physician: [facility] Course: This patient is a 58-year-old female who sustained a left ankle fracture dislocation. She was seen in the emergency department where a closed reduction was performed, she was subsequently admitted due to nausea and pain and was seen by orthopedics and a bulky Mendez splint was placed, and a CT scan was obtained. Patient was followed by Dr. Medina in the office and surgical treatment was recommended. Patient underwent an open reduction and internal fixation of her left ankle fracture on 06/15/[address] Medina. The procedure is performed without complication or sequelae. The patient is doing well postoperatively. Vital signs and labs are stable on postoperative day #3. The patient is examined bedside this morning. She states her pain is currently well-controlled. She is transferring while nonweight bearing on operative leg, while using a walker with no issues. She denies chest pain, shortness of breath, nausea, vomiting, fevers, chills, numbness or tingling of the left lower extremity. She states she has not had a bowel movement yet postoperatively, denies abdominal pain. On examination, the patient is lying in bed in no acute distress. The patient is alert and oriented 3. On inspection of the left lower extremity, there is a bulky Mendez splint in place. The splint is clean, dry, and intact. The left toes are warm and well perfused, with capillary refill less than 2 seconds. The patient is able to wiggle her left toes without difficulty. Sensation is intact to light touch of the left lower extremity. Neurovascular is intact of the left lower extremity. The right calf is soft and nontender. The patient is discharged to home today. Please refer to the med rec for accurate list of medications. Patient Condition at Discharge: Good Plan - Discharge Summary Discharge Rx Participant: Yes New Discharge Prescriptions: New Aspirin 325 mg PO DAILY #14 tab Docusate [Colace] 100 mg PO BID #60 capsule Hydrocodone/Acetaminophen [[place] 5-325] 1 - 2 tab PO Q4-6H PRN #40 tab PRN Reason: Pain HYDROcodone/APAP 10-325MG [[place] 10-325] 1 tab PO Q4-6H PRN 7 Days #40 tab PRN Reason: Pain Cholecalciferol (Vitamin D3) [Vitamin D3] 2,000 unit PO DAILY #30 capsule No Action Hydrocodone/Acetaminophen [[place] 5-325] 1 tab PO Q4H PRN #18 tab PRN Reason: Pain PARoxetine HCL [Paxil] 10 mg PO DAILY Methimazole 5 mg PO DAILY Magnesium 200 mg PO DAILY Lisinopril [Zestril] 20 mg PO DAILY Cyanocobalamin [Vitamin B-12] 500 mcg PO DAILY Cholecalciferol [Vitamin D3] 200 mg PO DAILY Discharge Medication List Cholecalciferol [Vitamin D3] 200 mg PO DAILY 05/29/18 [History] Cyanocobalamin [Vitamin B-12] 500 mcg PO DAILY 05/29/18 [History] Hydrocodone/Acetaminophen [[place] 5-325] 1 tab PO Q4H PRN #18 tab 05/29/18 [Rx] Lisinopril [Zestril] 20 mg PO DAILY 05/29/18 [History] Magnesium 200 mg PO DAILY 05/29/18 [History] Methimazole 5 mg PO DAILY 05/29/18 [History] PARoxetine HCL [Paxil] 10 mg PO DAILY 05/29/18 [History] Aspirin 325 mg PO DAILY #14 tab 06/17/18 [Rx] Docusate [Colace] 100 mg PO BID #60 capsule 06/17/18 [Rx] Hydrocodone/Acetaminophen [[place] 5-325] 1 - 2 tab PO Q4-6H PRN #40 tab 06/17/18 [Rx] Cholecalciferol (Vitamin D3) [Vitamin D3] 2,000 unit PO DAILY #30 capsule [Rx] HYDROcodone/APAP 10-325MG [[place] 10-325] 1 tab PO Q4-6H PRN 7 Days #40 tab 06/18 [Rx] Follow up Appointment(s)/Referral(s): Franc Medina MD [Medical Doctor] - 2 Weeks Activity/Diet/Wound Care/Special Instructions: -Vitamin D level 35.6, patient will be given prescription for vitamin D3 2,000 units daily. -Strict non-weight bearing on your operative leg. Do not remove your splint; Keep splint clean, dry, and intact -Use crutches, knee scooter, or a walker to ambulate after surgery. -Elevate and ice operative leg to help reduce swelling and control pain. -Take pain medications as prescribed. Take Colace as a stool softener. Take aspirin as prescribed for blood clot prevention. - Patient instructed to call her primary care physician if she has not had bowel movement within the next 2 days. -Follow-up appointment with Dr. Medina in the office in 2 weeks. -Call the office with any questions or concerns, Discharge Disposition: HOME SELF-CARE
[2018-06-18 15:21] VITALS: BP 105/63; PULSE 76; TEMP 98.3
--- NOTE | 2018-06-21 15:16 | CDI ---
Documentation Clarification Form Date: 06/21/18 From: Breonna Aleksander Alyse Del Cid, Salesperson [employer] Hours-8:30 am & 5 pm MKellyF Admit Date: 06/17/2018 3:36:00 PM Patient Name: Barb Jacobo Visit Number: [id number] Discharge Date: 06/18/2018 4:40:00 PM ATTENTION: The Clinical Documentation Specialists (CDI) and [facility] Coding Staff appreciate your assistance in clarifying documentation. Please respond to the clarification below the line at the bottom and electronically sign. The CDI & [facility] Coding staff will review the response and follow-up if needed. Please note: Queries are made part of the Legal Health Record. If you have any questions, please contact the author of this message via ITS. Dr. Franc Medina Patient has been diagnosed with a left trimalleolar fracture following a low- energy fall at home. Osteoporosis is documented under preoperative diagnoses. 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
== END 2018-06-18 16:40 | disposition home or self-care (01) | DRG 494 ==
LOC: OR 09:47 → EDSTATUS 13:00 → 4SSUR 14:48 → OR 06-17 15:36
PROVIDERS: ADMIT Orthopaedic Surgery; ATTEND Orthopaedic Surgery
PROC: 0QSK04Z Reposition Left Fibula with Internal Fixation Device, Open Approach (ICD-10-PCS; 2018-06-15)
PROC: 0QSH04Z Reposition Left Tibia with Internal Fixation Device, Open Approach (ICD-10-PCS; principal; 2018-06-15 12:00)
DX: S82.852A Displaced trimalleolar fracture of left lower leg, initial encounter for closed fracture (principal); E05.00 Thyrotoxicosis with diffuse goiter without thyrotoxic crisis or storm; I10 Essential (primary) hypertension; M81.0 Age-related osteoporosis without current pathological fracture; Z79.890 Hormone replacement therapy; Z79.899 Other long term (current) drug therapy; Z87.891 Personal history of nicotine dependence; Z90.49 Acquired absence of other specified parts of digestive tract; Z88.2 Allergy status to sulfonamides; Z91.018 Allergy to other foods; Z91.010 Allergy to peanuts; Z82.49 Family history of ischemic heart disease and other diseases of the circulatory system; W19.XXXA Unspecified fall, initial encounter; Y92.009 Unspecified place in unspecified non-institutional (private) residence as the place of occurrence of the external cause
CPT/HCPCS: 64447; 82306; 85025

== ENCOUNTER 2020-10-23 10:37 | Day surgery (SDC) | payer BC ==
[2020-10-22 10:01] VITALS: BMI 22.4
[2020-10-23] MEDS ORDERED: LIDOCAINE 1% (10MG/ML) FOR IV START INTRADERMA ONE (11:08)
[2020-10-23] MEDS ORDERED: LACTATED RINGERS 1,000 ML IV ONE (11:09)
[2020-10-23 11:12] VITALS: RESP 16; TEMP 98.8
[2020-10-23] MEDS ORDERED: MIDAZOLAM 2 MG/2 ML VIAL ONE (11:38)
[2020-10-23] MEDS ORDERED: PROPOFOL 10 MG/ML 20 ML VIAL IV ONE (11:38)
[2020-10-23] MEDS ORDERED: ONDANSETRON 4 MG/2 ML VIAL ONE (11:38)
[2020-10-23] MEDS ORDERED: fentaNYL (PF) 50 MCG/ML 2 ML AMP ONE (11:38)
--- NOTE | 2020-10-23 11:55 | P.PCN ---
Date of Procedure: 10/23/20 Procedure(s) Performed: BRIEF HISTORY: Patient is a 60-year-old pleasant white female scheduled for an elective colonoscopy as a part of evaluation of intermittent rectal bleeding and change in bowel habits. PROCEDURE PERFORMED: Colonoscopy. PREOPERATIVE DIAGNOSIS: Intermittent rectal bleeding. IV sedation per Anesthesia. PROCEDURE: After informed consent was obtained, the patient, was brought into the endoscopy unit. IV sedation was administered by Anesthesia under continuous monitoring. Digital rectal examination was normal. Initially the Olympus CF-160 flexible video colonoscope was then inserted in the rectum, gradually advanced into the cecum without any difficulty. Careful examination was performed as the scope was gradually being withdrawn. Ileocecal valve and the appendiceal orifice were visualized and appeared normal. Prep was excellent. Mucosa of the cecum, ascending colon, transverse colon, descending colon, sigmoid colon, and rectum appeared normal. Retroflexion was performed in the rectum and grade 2 internal hemorrhoids were seen. The patient tolerated the procedure well. IMPRESSION: Normal-appearing colon from rectum to cecum with no evidence of colorectal neoplasia . Grade 2 internal hemorrhoids RECOMMENDATIONS: Findings of this examination were discussed with the patient as well as his family. She was advised to be on a high-fiber diet and take fiber supplements a regular basis. She can have a repeat screening colonoscopy in 10 years.
[2020-10-23 12:27] VITALS: BP 113/79; PULSE 72
== END 2020-10-23 12:55 | disposition home or self-care (01) ==
LOC: ORWHC2ENDO 10:37
PROVIDERS: ATTEND Internal Medicine Gastroenterology
DX: K64.1 Second degree hemorrhoids (principal); K62.5 Hemorrhage of anus and rectum; I10 Essential (primary) hypertension; E07.9 Disorder of thyroid, unspecified; Z79.899 Other long term (current) drug therapy; Z88.1 Allergy status to other antibiotic agents; Z88.2 Allergy status to sulfonamides
CPT/HCPCS: 45378; J2250; J2405; J3010; J2704

== ENCOUNTER → 2023-04-02 | Outpatient (CLI) | payer MEDICARE ==
--- NOTE | 2023-04-05 08:51 | MM ---
Reason for Exam: Screening (asymptomatic). Last mammogram was performed 6 year(s) and 10 month(s) ago. Patient History: Menarche at age 10. First Full-Term at age 28. Late child-bearing (after 28). Postmenopausal. Hormonal Contraceptives for 7 months. Excisional Biopsy on the Left side. Risk Values: Cindi 5 year model risk: 2.7%. NCI Lifetime model risk: 10.0%. Prior Study Comparison: 09/08/2005 Bilateral Screening Mammogram, [facility]. 04/14/2011 Bilateral Screening Mammogram, [facility]. 06/02/2016 Bilateral Screening Mammogram, [facility]. Tissue Density: The breast tissue is heterogeneously dense. This may lower the sensitivity of mammography. Findings: Analyzed By CAD. There is no suspicious group of microcalcifications or new suspicious mass. Overall Assessment: Negative, BI-RAD 1 Management: Screening Mammogram of both breasts in [address] [facility] will attempt to contact patient to return for supplemental views and ultrasound if indicated. Patient should continue monthly self-breast exams. A clinical breast exam by your physician is recommended on an annual basis. This exam should not preclude additional follow-up of suspicious palpable abnormalities. Note on Cindi scores and lifetime risk: 1. A Cindi score greater than 3% is considered moderate risk. If this is the case, consider specialist referral to assess eligibility for a risk reducing agent. 2. If overall lifetime risk for the development of breast cancer is 20% or higher, the patient may qualify for future screening with alternating mammogram and breast MRI. Electronically signed and approved by: Rohit Duran DO
== END | disposition home or self-care (01) ==
LOC: RADMAMWWP 13:36
PROVIDERS: ATTEND Family Medicine
DX: Z12.31 Encounter for screening mammogram for malignant neoplasm of breast (principal); Z78.0 Asymptomatic menopausal state
CPT/HCPCS: 77063; 77067

== ENCOUNTER → 2023-06-22 | Outpatient (CLI) | payer MEDICARE ==
--- NOTE | 2023-06-22 13:13 | CA ---
Exercise Stress Test Report Name: Barb Jacobo Exam Date: 06/22/2023 12:05 Exam Location: [place] Stress Ht (in): 65 Wt (lb): 143 BSA: 1.72 Ordering Phys: Vera Miller DO Referring Phys: Lzia Welch PAC Technologist: JESÚS MELGAR Age: 63 Gender: F : 1960 Procedure CPT: Indications: R07.9 CHEST PAIN ICD-10 Codes: Patient History: CP, PALP, HTN, FAMILY HX, CATH, Medications: LISINOPRIL AND PAXIL Meds past 24 hrs: Pretest Chest Pain: STRESS TEST Ed Protocol Exercise Duration (min:sec): 09:[address] Depressions (mm): 0 Angina Score: 0 Dumont Score: 9 Resting HR (bpm): 72 Peak HR (bpm): 135 Resting BP (mmHg): 126 / 68 Peak BP (mmHg): 174 / 76 MPHR: 155 Target HR: 132 % MPHR: 87 METS: 10.3 Total Dose: Peak Dose: Atropine: Double Product: 40398 BP Response: Stress Termination: Reached target heart rate Stress Symptoms: No chest pain or symptoms Stress Summary: The patient's target heart rate was achieved ECG ANALYSIS Resting ECG: Sinus rhythm. Normal conduction. No arrhythmias. Normal repolarization. Stress ECG: No ECG evidence of ischemia with exercise. CONCLUSIONS Patient falls into low-risk group (DTS >= +5). This associates the patient with an annual CV mortality <= 0.5%. Good exercise tolerance with normal electrocardiographic response to exercise Nuclear images will be reported separately Dr. Junior Lowe MD (Electronically Signed) Final Date: 22 June 2023 13:12
--- NOTE | 2023-06-22 13:44 | NM ---
EXAMINATION TYPE: NM stress cardiolite complete DATE OF EXAM: 06/22/2023 COMPARISON: NONE CLINICAL INDICATION: Female, 63 years old with history of R07.9 CHEST PAIN; TECHNIQUE: After the intravenous administration of 9.2 mCi Tc 99m Sestamibi - Rest images obtained 4 5 minutes post injection. The patient exercised using a PRASAD protocol and 1 minute prior to peak e xercise was injected with 25.7 mCi Tc 99m Sestamibi - Stress images obtained 10 minutes post injectio n. FINDINGS: Targeted heart rate was achieved during performance of the study. Review of stress and rest SPECT gael ges demonstrates no distinct perfusion abnormality. Gated analysis shows normal wall motion with an estimated left ventricular ejection fraction of 74 %. IMPRESSION: No scintigraphic evidence for reversible ischemia
== END | disposition home or self-care (01) ==
LOC: RADNMMAIN 08:36
PROVIDERS: ATTEND Family Medicine
DX: R07.9 Chest pain, unspecified (principal); I10 Essential (primary) hypertension; R00.2 Palpitations; R00.0 Tachycardia, unspecified
CPT/HCPCS: 93017; 78452; A9500

== ENCOUNTER → 2024-07-18 | Outpatient (CLI) | payer MEDICARE ==
--- NOTE | 2024-07-19 07:22 | MM ---
Reason for Exam: Screening (asymptomatic). Last mammogram was performed 1 year(s) and 4 month(s) ago. Patient History: Menarche at age 10. First Full-Term at age 28. Late child-bearing (after 28). Postmenopausal. Hormonal Contraceptives for 7 months. Excisional Biopsy on the Left side. Risk Values: Cindi 5 year model risk: 2.7%. NCI Lifetime model risk: 9.7%. Prior Study Comparison: 04/14/2011 Bilateral Screening Mammogram, [facility]. 06/02/2016 Bilateral Screening Mammogram, [facility]. 04/02/2023 Bilateral MG 3D screening mammo w/cad, [facility]. Tissue Density: The breasts are heterogeneously dense, which may obscure small masses. Findings: Analyzed By CAD. There is no suspicious group of microcalcifications or new suspicious mass in either breast. Overall Assessment: Negative, BI-RAD 1 Management: Screening Mammogram of both breasts in 1 year. Patient should continue monthly self-breast exams. A clinical breast exam by your physician is recommended on an annual basis. This exam should not preclude additional follow-up of suspicious palpable abnormalities. Note on Cindi scores and lifetime risk: 1. A Cindi score greater than 3% is considered moderate risk. If this is the case, consider specialist referral to assess eligibility for a risk reducing agent. 2. If overall lifetime risk for the development of breast cancer is 20% or higher, the patient may qualify for future screening with alternating mammogram and breast MRI. [facility], , 07/19/2024 7:17 AM. Electronically signed and approved by: Joe Olvera M.D. Radiologist
== END | disposition home or self-care (01) ==
LOC: RADMAMWWP 14:32
PROVIDERS: ATTEND Family Medicine
DX: Z12.31 Encounter for screening mammogram for malignant neoplasm of breast (principal); R92.333 Mammographic heterogeneous density, bilateral breasts; Z78.0 Asymptomatic menopausal state
CPT/HCPCS: 77063; 77067